=== PATIENT | female | born 1980 | race Caucasian/White ===

== ENCOUNTER → 2016-10-10 | Outpatient (CLI) | payer OTHER | END | disposition home or self-care (01) | LOC: C.LAB 07:13 | PROVIDERS: ATTEND Obstetrics & Gynecology Reproductive Endocrinology | DX: E28.9 Ovarian dysfunction, unspecified (principal) ==

== ENCOUNTER → 2016-10-14 | Outpatient (CLI) | payer OTHER | END | disposition home or self-care (01) | LOC: C.LAB 07:54 | PROVIDERS: ATTEND Obstetrics & Gynecology Reproductive Endocrinology | DX: N97.9 Female infertility, unspecified (principal) ==

== ENCOUNTER → 2016-10-16 | Outpatient (CLI) | payer OTHER | END | disposition home or self-care (01) | LOC: C.LAB 07:21 | PROVIDERS: ATTEND Obstetrics & Gynecology Reproductive Endocrinology | DX: N87.9 Dysplasia of cervix uteri, unspecified (principal) ==

== ENCOUNTER → 2016-10-31 | Outpatient (CLI) | payer OTHER | END | disposition home or self-care (01) | LOC: C.LAB 07:55 | PROVIDERS: ATTEND Obstetrics & Gynecology Reproductive Endocrinology | DX: N97.9 Female infertility, unspecified (principal) ==

== ENCOUNTER → 2016-11-17 | Outpatient (CLI) | payer OTHER | END | disposition home or self-care (01) | LOC: C.LAB 07:20 | PROVIDERS: ATTEND Obstetrics & Gynecology Reproductive Endocrinology | DX: N97.9 Female infertility, unspecified (principal) ==

== ENCOUNTER → 2016-12-09 | Outpatient (CLI) | payer OTHER | END | disposition home or self-care (01) | LOC: C.LAB 14:42 | PROVIDERS: ATTEND Obstetrics & Gynecology Reproductive Endocrinology | DX: O09.00 Supervision of pregnancy with history of infertility, unspecified trimester (principal); Z3A.00 Weeks of gestation of pregnancy not specified ==

== ENCOUNTER → 2016-12-26 | Outpatient (CLI) | payer OTHER ==
[2016-12-26 18:43] LABS: URINE APPEARANCE CLEAR (CLEAR); URINE BILIRUBIN NEG (NEG); URINE COLOR YELLOW; URINE NITRITE NEG (NEG); URINE SPECIFIC GRAVITY 1.018 (1.000-1.030); UROBILINOGEN NEG (NEG)
[2016-12-26 18:48] LABS: MANUAL MICROSCOPIC REQUIRED? NO; REVIEW REQ? NO
== END | disposition home or self-care (01) ==
LOC: C.LABSPEC 17:01
PROVIDERS: ATTEND Obstetrics & Gynecology
DX: O09.521 Supervision of elderly multigravida, first trimester (principal)

== ENCOUNTER → 2016-12-31 | Outpatient (CLI) | payer OTHER ==
[2016-12-31 14:40] LABS: BASO % 0.2 %; BASO ABS # 0.02 K/uL (0-0.2); COMPLETE YES; EOS % 5.3 %; HEMATOCRIT 38.5 % (37-47); IG% 0.1 %; LYMPH % 22.6 %; LYMPH ABS # 1.96 K/uL (1.2-3.4); MEAN CELL VOLUME 94.8 fL (80-100); MEAN CORPUSCULAR HEMOGLOBIN 32.5 pg (25-34); MEAN CORPUSCULAR HGB CONC 34.3 g/dl (32-36); MEAN PLATELET VOLUME 9.5 fL (7.4-10.4); MONO % 5.2 %; NEUT % 66.6 %; PLATELET COUNT 303 K/uL (130-400); RED BLOOD COUNT 4.06 M/uL (4.2-5.4); WHITE BLOOD COUNT 8.69 K/uL (4.8-10.8)
[2016-12-31 15:40] LABS: THYROID STIMULATING HORMONE 2.32 uIu/ml (0.300-4.500)
[2017-01-03 11:12] LABS: CHLAMYDIA TRACH RNA*** NOT DETECTED (NOT DETECTED); GC (NEIS GONORRHOEAE)RNA** NOT DETECTED (NOT DETECTED)
== END | disposition home or self-care (01) ==
LOC: C.LAB1850 13:05
PROVIDERS: ATTEND Obstetrics & Gynecology
DX: O09.521 Supervision of elderly multigravida, first trimester (principal); O99.281 Endocrine, nutritional and metabolic diseases complicating pregnancy, first trimester

== ENCOUNTER → 2017-05-18 | Outpatient (CLI) | payer OTHER ==
[2017-05-18 12:17] LABS: HEMATOCRIT 35.8 % (37-47); HEMOGLOBIN 11.9 g/dL (12.0-16.0)
== END | disposition home or self-care (01) ==
LOC: C.LAB1850 10:09
PROVIDERS: ATTEND Obstetrics & Gynecology
DX: O24.410 Gestational diabetes mellitus in pregnancy, diet controlled (principal)

== ENCOUNTER 2017-06-05 11:20 | Outpatient (CLI) | payer OTHER ==
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
== END 2017-06-05 14:25 | disposition home or self-care (01) ==
LOC: C.OPB 11:20 → C.LD 11:20 → C.OPB 14:25
PROVIDERS: ATTEND Obstetrics & Gynecology
DX: O99.89 Other specified diseases and conditions complicating pregnancy, childbirth and the puerperium (principal); O09.523 Supervision of elderly multigravida, third trimester; V43.52XA Car driver injured in collision with other type car in traffic accident, initial encounter; O24.410 Gestational diabetes mellitus in pregnancy, diet controlled; O99.283 Endocrine, nutritional and metabolic diseases complicating pregnancy, third trimester; Z3A.31 31 weeks gestation of pregnancy

== ENCOUNTER → 2017-07-13 | Outpatient (CLI) | payer OTHER | END | disposition home or self-care (01) | LOC: C.LABSPEC 18:00 | PROVIDERS: ATTEND Obstetrics & Gynecology | DX: O24.414 Gestational diabetes mellitus in pregnancy, insulin controlled (principal); Z3A.00 Weeks of gestation of pregnancy not specified ==

== ENCOUNTER 2017-08-02 06:01 | Inpatient (IN) | payer OTHER ==
[~2017-08-02] VITALS: Ht 160 cm; Wt 100.0 kg
[2017-08-02] MEDS ORDERED: LACTATED RINGER'S 1000ML 1,000 ML IV PRN (06:37)
[2017-08-02 06:39] VITALS: Ht 160 cm; Wt 100.0 kg
[2017-08-02] MEDS ORDERED: PRENTAB26 PO (06:39)
[2017-08-02] MEDS ORDERED: SERT-234 PO (06:39)
[2017-08-02] MEDS ORDERED: INSU1INJ SC (06:39)
[2017-08-02] MEDS ORDERED: DIPH1CRE (06:39)
[2017-08-02] MEDS ORDERED: HMLI7525 SC (06:39)
[2017-08-02] MEDS ORDERED: LEVO25TA5 PO (06:39)
[2017-08-02 07:14] LABS: HEMATOCRIT 34.2 % (37-47); HEMOGLOBIN 11.6 g/dL (12.0-16.0); MEAN CELL VOLUME 88.8 fL (80-100); MEAN CORPUSCULAR HEMOGLOBIN 30.1 pg (25-34); MEAN CORPUSCULAR HGB CONC 33.9 g/dl (32-36); MEAN PLATELET VOLUME 9.4 fL (7.4-10.4); PLATELET COUNT 236 K/uL (130-400); RED CELL DISTRIBUTION WIDTH CV 13.3 % (11.5-14.5); WHITE BLOOD COUNT 13.49 K/uL (4.8-10.8)
[2017-08-02] MEDS ORDERED: BUPIVACAINE 0.25% 30 ML VIAL ONE (07:36)
[2017-08-02] MEDS ORDERED: EpHEDrine SULFATE INJ 50 MG/ML AMP ONE (07:36)
[2017-08-02] MEDS ORDERED: FENTANYL CITRATE INJ 50 MCG/1 ML 2 ML VIAL ONE (07:37)
[2017-08-02] MEDS ORDERED: FENTANYL 2MCG/ML ROPIV 1.25MG/ML 100ML BAG EPI ONE (07:37)
[2017-08-02] MEDS ORDERED: OXYTOCIN 30 UNITS/500ML NSS IV ONE (07:38)
[2017-08-02] MEDS: LACTATED RINGER'S 1000ML 1,000 ML IV SCH ×3 (07:50→13:47)
[2017-08-02] MEDS ORDERED: NALOXONE HCL INJ 1 MG in SODIUM CHLORIDE 0.9% 1000ML 1,000 ML IV PRN (08:16)
[2017-08-02] MEDS ORDERED: LACTATED RINGER'S 1000ML 500 ML IV PRN ×2 (08:16→10:20)
[2017-08-02] MEDS ORDERED: EpHEDrine SULFATE INJ 50 MG/ML AMP IV PRN (08:30)
[2017-08-02] MEDS ORDERED: ONDANSETRON INJ 2 MG/ML 2 ML VIAL IV PRN (08:30)
[2017-08-02] MEDS ORDERED: NALBUPHINE HCL INJ 10 MG/ML AMP IV PRN (08:30)
[2017-08-02] MEDS ORDERED: DiphenhydrAMINE HCL 50 MG/ML VIAL IV PRN (08:30)
[2017-08-02] MEDS ORDERED: NALOXONE HCL INJ 0.4 MG/1 ML VIAL/CARP IV PRN (08:30)
[2017-08-02] MEDS ORDERED: FENTANYL 2MCG/ML ROPIV 1.25MG/ML 100ML BAG EPI PRN (08:30)
[2017-08-02] MEDS ORDERED: OXYTOCIN 30 UNITS/500ML NSS IV PRN ×2 (10:30→14:30)
[2017-08-02] MEDS ORDERED: SILVER NITR/POTASSIUM NITRATE APPLICATOR ONE (14:11)
[2017-08-02] MEDS ORDERED: SUPERCREAM 0.870 % 15GM JAR EXT PRN (14:30)
[2017-08-02] MEDS ORDERED: OXYCODONE/ACETAMINOPHEN 5-325 TAB PO PRN (14:30)
[2017-08-02] MEDS ORDERED: LANOLIN OINT EXT PRN (14:30)
[2017-08-02] MEDS ORDERED: BENZOCAINE 20% AER SPR 82.5 GM CAN EXT PRN (14:30)
[2017-08-02] MEDS ORDERED: ACETAMINOPHEN 325 MG TAB PO PRN (14:30)
--- NOTE | 2017-08-02 15:09 | DELIVERY SUMMARY ---
DATE OF OPERATION: 08/02/2017 The patient is a 36-year-old 2, para 1-0-0-1 white female, EDC of 08/06/2017 who presented in spontaneous labor at 39 weeks. She received epidural analgesia, membranes were ruptured first in meconium-stained fluid. She did receive Pitocin augmentation of labor. She progressed to full dilation and then pushed effectively over intact perineum for delivery of a viable female . Mouth and nasopharynx were suctioned on the perineum. The rest of the infant delivered easily and was placed on the mother's abdomen for further attention. She was moving all 4 limbs and we had spontaneous crying. She had a fourth degree laceration. She did have one with her prior delivery as well. The rectal mucosa were closed with 4-0 Vicryl in a running fashion, 2-0 chromic was used to resupport the perineal body and to repair the third degree tear. The skin edges on the vaginal and perineal area were repaired with 3-0 chromic in usual fashion. There were no stitches in the rectum and it was intact after the repair. The patient also has a papilloma in her umbilicus which she has to be removed. This was done with a pair of Metzenbaum scissors. Bleeding at the base of the papilloma was controlled with pressure and silver nitrate. There were some hypotensive episodes after delivery. Estimated blood loss was 500 mL. The patient is now recovered with IV resuscitation and bleeding is minimal now. Mother and are doing well now. I attest to the content of the Intraoperative Record and any orders documented therein. Any exception s are noted below.
[2017-08-02] MEDS ORDERED: NURSING VERBAL MED ORDER ONE (15:15)
[2017-08-02] MEDS: IBUPROFEN 600 MG TAB PO PRN ×2 (15:45→19:48)
--- NOTE | 2017-08-02 16:02 | Anesthesia Procedure Note ---
Anesthesia Epidural Removal Nt Date & Time Aug 02, 2017 at 16:02 Vital Signs Pain Intensity: 4.0 Notes Mental Status: alert / awake / arousable, participated in evaluation Nausea / Vomiting: adequately controlled Pain: adequately controlled Airway Patency, RR, SpO2: stable & adequate BP & HR: stable & adequate Hydration State: stable & adequate Neuraxial Anesthesia: was administered Anesthetic Complications: no major complications apparent, pt satisfied with anesthetic care Epidural: removed without complications, with tip intact
[2017-08-02 17:20] VITALS: BP 145/84; PULSE 99; TEMP 37
[2017-08-02 19:45] VITALS: BP 128/62; PULSE 97; TEMP 36.6
[2017-08-02] MEDS: DOCUSATE SODIUM 100 MG CAP PO SCH (19:45)
[2017-08-02] MEDS: BACITRACIN OINT 15 GM TUBE EXT SCH (19:46)
[2017-08-02 23:50] VITALS: BP 113/78; PULSE 91; TEMP 37.1
[2017-08-03 04:35] VITALS: BP 119/76; PULSE 90; TEMP 36.9
[2017-08-03] MEDS: IBUPROFEN 600 MG TAB PO PRN ×2 (04:46→16:33)
[2017-08-03 06:44] LABS: HEMATOCRIT 25.4 % (37-47); HEMOGLOBIN 8.4 g/dL (12.0-16.0)
[2017-08-03] MEDS ORDERED: LEVOTHYROXINE 25 MCG TAB PO SCH (07:30)
[2017-08-03] MEDS: BACITRACIN OINT 15 GM TUBE EXT SCH (07:31)
--- NOTE | 2017-08-03 07:34 | OB/GYN Progress Note ---
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 Subjective conversation w/ patient, conversation w/ family, physical exam, chart review, lab review Ambulation: ambulating normally Voiding: no voiding problems Passing Gas: Yes Diet Tolerance: Regular Diet Lochia: Moderate Feeding Type: Breast Feeding Review of Systems Constitutional: No fever, No chills, No sweats Respiratory: No cough, No sputum, No wheezing Cardiac: No chest pain Abdomen: No pain, No nausea, No vomiting Female : No dysuria Objective Vital Signs Date Time Temp Pulse Resp B/P (MAP) Pulse Ox O2 Delivery O2 Flow Rate FiO2 08/03/17 04:35 36.9 90 16 119/76 (90) Room Air 08/02/17 23:50 37.1 91 18 113/78 (90) Room Air 08/02/17 23:50 Room Air 08/02/17 19:45 36.6 97 20 128/62 (84) 08/02/17 17:20 37.0 99 20 145/84 (104) Physical Exam General Appearance: WELL-APPEARING, WD/WN, NO APPARENT DISTRESS Respiratory/Chest: lungs clear, no respiratory distress, no accessory muscle use Cardiovascular: regular rate, rhythm, no murmur Abdomen: normal bowel sounds, non tender Fundus: Firm Extremities: non-tender, normal inspection, no pedal edema Laboratory Results Last 24 Hours Test 08/02/17 09:14 08/02/17 10:58 08/02/17 13:06 08/02/17 13:40 Bedside Glucose 69 mg/dl 70 mg/dl 68 mg/dl 74 mg/dl Test 08/03/17 06:11 Hemoglobin 8.4 g/dL Hematocrit 25.4 % Medications Current Inpatient Medications Medications (Trade) Dose Ordered Sig/[place] Route Start Time Stop Time Status Last Admin Dose Admin Lactated Ringer's 1,000 ml @ 125 mls/hr Q8H IV 08/02/17 06:37 08/04/17 06:36 08/02/17 13:47 125 MLS/HR Lactated Ringer's 1,000 ml @ 999 mls/hr Q1H1M PRN IV 08/02/17 06:37 09/01/17 06:36 Levothyroxine Sodium (Synthroid Tab) 25 mcg DAILYBB PO 08/03/17 07:30 09/02/17 07:29 Sertraline HCl (Zoloft Tab) 100 mg DAILY PO 08/03/17 08:00 09/02/17 07:59 Lactated Ringer's 500 ml @ 999 mls/hr Q31M PRN IV 08/02/17 10:20 09/01/17 10:19 Oxytocin (Pitocin IV) 30 units UD PRN IV 08/02/17 14:30 09/01/17 14:29 08/02/17 15:02 30 UNITS Benzocaine (Dermoplast Aero Spr) 1 appln PRN PRN EXT 08/02/17 14:30 09/01/17 14:29 08/02/17 18:25 82.5 APPLN Cocaine HCl (Supercream 0.870% Cr) BID PRN EXT 08/02/17 14:30 08/16/17 14:29 Lanolin (Lanolin Oint) PRN PRN EXT 08/02/17 14:30 09/01/17 14:29 Prenat Multivit/ Eddy/Iron/Folic Ac ( Vitamin Tab) 1 tab DAILY PO 08/03/17 08:00 09/02/17 07:59 Ibuprofen (Motrin Tab) 600 mg Q4H PRN PO 08/02/17 14:30 09/01/17 14:29 08/03/17 04:46 600 MG Acetaminophen (Tylenol Tab) 650 mg Q6H PRN PO 08/02/17 14:30 09/01/17 14:29 Oxycodone/ Acetaminophen (Percocet 5-325mg Tab) 1 tab Q4H PRN PO 08/02/17 14:30 08/16/17 14:29 Bisacodyl (Dulcolax Tab) 5 mg 20 PO 08/03/17 20:00 08/03/17 20:01 Docusate Sodium (coLACE CAP) 100 mg BID PO 08/02/17 20:00 09/01/17 19:59 08/02/17 19:45 100 MG Bacitracin (Bacitracin Oint) 1 appln BID EXT 08/02/17 20:00 09/01/17 19:59 08/02/17 19:46 1 APPLN Assessment and Plan Continue Routine Care: 36 f. [id number] Physician Supervision Note: I was present with Dr. Bryson Sierra during the history and exam. I discussed the case with the resident and agree with the findings and plan as documented in the note. Any exceptions or clarifications are listed here: [None] Documented By: Mariluz Cornejo , vaginal delivery on 08/02. Pt is A+/RI/GBS- Pt is doing well clinically Plan; 1. Vaginal delivery--cont. pp care; monitor lochia, control pain, ambulate.
[2017-08-03] MEDS ORDERED: CLC100 PO (07:55)
--- NOTE | 2017-08-03 07:58 | Discharge Instructions ---
Discharge Instructions Date of Service Aug 03, 2017. Admission Reason for Admission: Normal Labor Discharge Discharge Diagnosis / Problem: normal delivery with 4th degree tear Discharge Goals Goal(s): Routine recovery after delivery Medications Continue Dispensed Medications: supercream, dermaplast, tucks, lansinoh Activity Recommendations Activity Limitations: per Instructions/Follow-up section . Instructions / Follow-Up Instructions / Follow-Up ACTIVITY RECOMMENDATIONS: * Gradual return to full activity over the next 2-3 weeks. * No lifting - nothing heavier than baby over the next 2-3 weeks. * Do not engage in vigorous exercise, sexual activity or sports until cleared by your physician. * Do not drive or operate any motorized equipment until cleared by your physician. * You may shower/bathe daily. MEDICATIONS: For discomfort or pain, you may use Acetaminophen (Tylenol), Ibuprofen (Advil), or Naproxen (Aleve) following the package directions. For constipation you may use Colace following the package directions. BREAST CARE: If you are not breast feeding: * Wear a supportive bra 24 hours a day for one to two weeks. * Avoid stimulating your breasts and nipples as much as possible during the first few weeks after delivery. * When taking a shower, have the warm water hit your back, not breasts. * When your breasts feel full, apply ice packs. Usually three to four times a day helps ease the discomfort. * Take a mild pain medication (Tylenol / Motrin) when you are uncomfortable. If breast feeding: * Use breast milk to lubricate nipples. Lansinoh cream may be used for sore nipples. You do not need to remove cream prior to breast feeding. If using a different brand of cream, check the label for directions regarding removal of cream prior to nursing. * Wear a supportive bra. * If having problems with breasts or breast feeding, call a art consultant or your health care provider. EPISIOTOMY CARE: After delivery, if you have an episiotomy (stitches), the following steps will ease discomfort and aid healing. * For the first 24 hours after delivery, place ice packs next to your episiotomy to help reduce swelling. * After the first 24 hour-period, sitz baths, either portable or in the tub, are suggested. A shower with a shower arm sprayed over the episiotomy may be comforting. * Eileen care should be done after each voiding and bowel movement. Squirt warm water from a plastic bottle over the perineum (region of the body between the anus and urinary opening) and pat dry. * Use Dermoplast to ease discomfort. Shake container. [place] directly over the episiotomy. Place a Tucks on a clean sanitary pad next to your episiotomy. SPECIAL CARE INSTRUCTIONS: When you are discharged from the hospital, it is important for you to follow the instructions listed below: * During the first week at home, you should be able to care for yourself and your baby. In addition, the usual light household activities are encouraged. * Limit your activities to the way you feel. Do not try to clean the house or move furniture. Be sensible. * If you actively engage in sports and have done so up until the time of your delivery, you may resume these activities as soon as you feel able. This may take up to one month or even longer. Use good judgment. * Continue to take your vitamins for at least six weeks after the of your baby. * Your diet need not be limited unless you were on a special diet before your delivery. Breast-feeding mothers need around 2500 calories per day and at least 64-80 ounces of fluid per day (8 to 10 glasses). * You should eat foods from the four major food groups. Crash diets or fad diets are to be avoided. Eating lean meats, fresh fruits and vegetables, low-fat dairy products, high fiber foods and a regular exercise program, will help you get back to your pre- weight without putting your health at risk. * Constipation is sometimes a problem after delivery. Take a mild laxative as needed. If breast feeding, Milk of Magnesia is acceptable to use. You may use a suppository or Fleets enema if no episiotomy. * A daily shower or tub bath is suggested. Be sure to thoroughly and gently dry the perineum. * A bloody vaginal discharge will usually continue until around four weeks post . A small amount of bleeding may continue for as long as six weeks. Vaginal discharge changes from the bright red bleeding after delivery to pink then brownish and finally yellowish-pink before becoming white and disappearing. * Bleeding may increase with activity. Your first period may come in 4-8 weeks. If you are breast feeding, your period may be delayed even longer. * [place] (sex) can begin whenever both you and your partner feel comfortable and do not have any form of genital infection. It is recommended that you wait at least six weeks for internal and external healing to occur. If you have questions, please talk to your health care practitioner. A condom should be used to prevent infection and . * Foreplay, gentle intercourse and lubrication is very important the first several times to prevent pain. A water-based lubricant such as K-Y jelly or Astroglide may be used. * If you have RH negative blood and your baby is RH positive, you will receive RHOGAM by injection prior to discharge. The nurse will give you a card to keep with you that has the date and place that you received RHOGAM after delivery. * During your care, you had a Rubella screen done to check for the presence of rubella antibodies in your blood. If your test was negative, you will receive a Rubella vaccine prior to discharge. This vaccine may cause a fever, soreness at the injection site and flu-like symptoms. If these symptoms persist, notify your health care practitioner. is not advised for one month after a Rubella vaccine. * Verbalizes understanding of car seat law as reviewed with patient nursing. * Car Seat hand-out given and reviewed with patient by nursing. * Shaken baby information reviewed with patient by nursing. Call you doctor if: * Heavy bleeding (saturating several pads an hour) or passing clots the size of your fist. * A fever >101 degrees F (38.3 degrees C) on two occasions four hours apart and /or chills. * Unusual pain in the pelvic or vaginal areas. * "Baby Blues" lasting longer than two weeks. If you have any questions or concerns, call your health care practitioner at . FOLLOW UP VISIT: * Please call the office at to schedule a 6 week examination. It is important you keep this appointment. It is important for you to make arrangements for either yearly or twice yearly check-ups thereafter. Current Hospital Diet Patient's current hospital diet: Regular OB Diet Discharge Diet Recommended Diet: Regular OB Diet Pending Studies Studies pending at discharge: no Medical Emergencies . Who to Call and When: Medical Emergencies: If at any time you feel your situation is an emergency, please call 911 immediately. . Non-Emergent Contact Non-Emergency issues call your: Helper Coordinator . . "Provider Documentation" section prepared by Mariluz Garcia .
[2017-08-03 08:00] VITALS: BP 137/82; PULSE 86; TEMP 36.9
[2017-08-03] MEDS ORDERED: PRENATAL VITAMIN TAB PO SCH (08:00)
[2017-08-03] MEDS ORDERED: SERTRALINE HCL 100 MG TAB PO SCH (08:00)
[2017-08-03] MEDS: DOCUSATE SODIUM 100 MG CAP PO SCH (08:21)
[2017-08-03] MEDS ORDERED: DOCU100C31 PO (09:42)
[2017-08-03 12:19] VITALS: BP 118/81; PULSE 81; TEMP 36.6
[2017-08-03] MEDS ORDERED: BISACODYL 5 MG TABEC PO SCH (20:00)
--- NOTE | 2017-08-06 10:03 | DISCHARGE SUMMARY ---
PRINCIPAL DIAGNOSES: Intrauterine at term, spontaneous vaginal delivery with fourth degree laceration HISTORY: The patient is a 36-year-old 2, para 1-0-0-1 white female who presented with spontaneous labor at 39 weeks. She progressed to full dilation with delivery of a viable female over an intact perineum; however, it was noted to have a fourth degree extension of her laceration which was repaired in the usual fashion. She had an uncomplicated post-delivery course. She was afebrile throughout hospital stay. She did have some bleeding in the initial period which was controlled with fundal massage and IV Pitocin. Hemoglobin on admission was 11.6, hematocrit 34.2. First post-delivery day hemoglobin was 8.4, hematocrit 25.4. She was sent home with the usual instructions including Colace 100 mg twice a day for the next 6 weeks. She is to be seen in the office in 6 weeks for visit or before then if there are any other issues with her repair, bleeding, fever or abdominal pain.
== END 2017-08-03 16:45 | disposition home or self-care (01) | DRG 774 ==
LOC: C.OPB 06:01 → C.LD 06:03 → C.OPB 06:44 → C.OBG 17:11 → EDSTATUS 08-06 05:59
PROVIDERS: ADMIT Obstetrics & Gynecology; ATTEND Obstetrics & Gynecology
PROC: 0HB7XZZ Excision of Abdomen Skin, External Approach (ICD-10-PCS; principal; 2017-08-02)
PROC: 10E0XZZ Delivery of Products of Conception, External Approach (ICD-10-PCS; principal; 2017-08-02)
PROC: 0DQP0ZZ Repair Rectum, Open Approach (ICD-10-PCS; principal; 2017-08-02)
DX: O24.424 Gestational diabetes mellitus in childbirth, insulin controlled (principal); O99.42 Diseases of the circulatory system complicating childbirth; O70.3 Fourth degree perineal laceration during delivery; I95.9 Hypotension, unspecified; O99.72 Diseases of the skin and subcutaneous tissue complicating childbirth; D23.5 Other benign neoplasm of skin of trunk; O77.0 Labor and delivery complicated by meconium in amniotic fluid; O99.284 Endocrine, nutritional and metabolic diseases complicating childbirth; E03.9 Hypothyroidism, unspecified; O99.02 Anemia complicating childbirth; D64.9 Anemia, unspecified; O99.344 Other mental disorders complicating childbirth; F32.9 Major depressive disorder, single episode, unspecified; F41.9 Anxiety disorder, unspecified; Z3A.39 39 weeks gestation of pregnancy; Z37.0 Single live birth; Z79.4 Long term (current) use of insulin; Z79.899 Other long term (current) drug therapy

== ENCOUNTER → 2017-09-17 | Outpatient (CLI) | payer OTHER ==
[~2017-09-17] MED LIST: LEVO25TA5 PO; PRENTAB26 PO; SERT-234 PO
== END | disposition home or self-care (01) ==
LOC: C.PAPS 15:14
PROVIDERS: ATTEND Obstetrics & Gynecology
DX: O09.523 Supervision of elderly multigravida, third trimester (principal)